=== PATIENT | female | born 1975 | race Caucasian/White ===

== ENCOUNTER 2023-06-20 17:07 | Emergency (ER) | payer OTHER ==
[~2023-06-20] VITALS: Ht 162.6 cm; Wt 59.0 kg
[2023-06-20 17:16] VITALS: BP 138/82; PULSE 100; RESP 15; TEMP 98.5; O2SAT 99
[2023-06-20] MEDS ORDERED: ACETAMINOPHEN 325MG TABLET PO NR (19:15)
[2023-06-20] MEDS ORDERED: INSULIN GLARGINE 100 UNITS/ML SUBCUT ONE (19:15)
[2023-06-20] MEDS ORDERED: ONDANSETRON 4MG ODT PO NR (19:15)
[2023-06-20] MEDS ORDERED: INSULIN GLARGINE 100 UNITS/ML SUBCUT NR (19:15)
[2023-06-20] MEDS ORDERED: ACETAMINOPHEN 325MG TABLET PO ONE (19:15)
[2023-06-20] MEDS ORDERED: ONDANSETRON 4MG ODT PO ONE (19:15)
[2023-06-20] MEDS ORDERED: ONDA4TAB11 PO (20:57)
== END 2023-06-20 21:52 | disposition home or self-care (01) ==
LOC: ER 17:07
DX: R51.9 Headache, unspecified (principal); R11.10 Vomiting, unspecified; E11.9 Type 2 diabetes mellitus without complications
CPT/HCPCS: 99284; 70450; 82962; Q0162; J1815